=== PATIENT | female | born 1955 | race Caucasian/White ===

== ENCOUNTER → 2018-08-14 | Outpatient (CLI) | payer BC ==
[~2018-08-14] MED LIST: CHOL10003 PO; DIPH-419 PO; FLUO10CA7 PO
== END | disposition home or self-care (01) ==
LOC: STAR 08:59
PROVIDERS: ATTEND Orthopaedic Surgery
DX: Z01.818 Encounter for other preprocedural examination (principal); M19.011 Primary osteoarthritis, right shoulder
CPT/HCPCS: 93005

== ENCOUNTER 2018-08-22 11:43 | Day surgery (SDC) | payer BC ==
[2018-08-14 09:46] VITALS: BP 114/73
[~2018-08-22] VITALS: Ht 165.1 cm; Wt 86.3 kg
[~2018-08-22 11:43] MED LIST changes: +BUPIVACAINE/PF 0.5% ONE; +BUPIVACAINE/PF-EPI 0.5% 1:200K ONE; +EPINEPHRINE 1 MG/ML, 1ML ONE; +LIDOCAINE 1%-EPI 1:100K, 30ML ONE
[2018-08-22] MEDS ORDERED: LACTATED RINGERS 1,000 ML IV SCH (12:46)
[2018-08-22] MEDS ORDERED: FENTANYL PF 250 MCG/5ML ONE (12:57)
[2018-08-22] MEDS ORDERED: MIDAZOLAM 1 MG/ML, 2ML ONE (12:57)
[2018-08-22] MEDS ORDERED: MEPERIDINE/PF 50 MG/ML ONE (13:11)
[2018-08-22] MEDS ORDERED: FENTANYL PF 100 MCG/2ML IV PRN (14:30)
[2018-08-22] MEDS ORDERED: HYDROmorphone 2 MG/ML, 1ML IVPush PRN (14:30)
[2018-08-22] MEDS ORDERED: KETOROLAC 30 MG/1 ML IV PRN (14:30)
[2018-08-22] MEDS ORDERED: OXYcodone 5 MG/5 ML ORAL.SOL UDC PO PRN (14:30)
[2018-08-22] MEDS ORDERED: ACETAMINOPHEN 325 MG TABLET PO PRN (14:30)
[2018-08-22] MEDS ORDERED: PROMETHAZINE 25 MG/ML, 1ML IV PRN (14:30)
[2018-08-22] MEDS ORDERED: hydrALAzine 20 MG/ML, 1ML IV PRN (14:30)
[2018-08-22] MEDS ORDERED: LABETALOL 5MG/ML, 20ML IV PRN (14:30)
[2018-08-22] MEDS ORDERED: MEPERIDINE/PF 25MG/0.5ML IVPush PRN (14:30)
[2018-08-22] MEDS ORDERED: DIAZEPAM 5 MG/ML, 2ML IVPush PRN (14:30)
[2018-08-22] MEDS ORDERED: ALBUTEROL SULFATE 2.5 MG/3 ML NPPB PRN (14:30)
[2018-08-22] MEDS ORDERED: OXYcodone 5 MG/5 ML ORAL.SOL UDC ONE (15:02)
[2018-08-22] MEDS ORDERED: CEFAZOLIN 1,000 MG ONE (16:08)
[2018-08-22] MEDS ORDERED: SUCCINYLCHOLINE 20 MG/ML, 10ML ONE (16:08)
[2018-08-22] MEDS ORDERED: DEXAMETHASONE 4 MG/ML, 1ML ONE (16:08)
[2018-08-22] MEDS ORDERED: ONDANSETRON 2MG/ML, 2ML ONE (16:08)
[2018-08-22] MEDS ORDERED: PROPOFOL 10 MG/ML, 20ML ONE (16:08)
[2018-08-22] MEDS ORDERED: DIAZEPAM 5 MG TABLET ONE (17:02)
== END 2018-08-22 18:25 | disposition home or self-care (01) ==
LOC: OUT 11:43
PROVIDERS: ATTEND Orthopaedic Surgery
DX: S43.431A Superior glenoid labrum lesion of right shoulder, initial encounter (principal); M75.111 Incomplete rotator cuff tear or rupture of right shoulder, not specified as traumatic; M19.011 Primary osteoarthritis, right shoulder; M75.41 Impingement syndrome of right shoulder; M65.811 Other synovitis and tenosynovitis, right shoulder; F17.210 Nicotine dependence, cigarettes, uncomplicated; Z98.890 Other specified postprocedural states; Z72.89 Other problems related to lifestyle; X58.XXXA Exposure to other specified factors, initial encounter; Y93.89 Activity, other specified; Y92.89 Other specified places as the place of occurrence of the external cause; Y99.8 Other external cause status
CPT/HCPCS: 29823; 29824; 29826; 64415; J0330; J0690; J1100; J2250; J2405; J2704; J3010; J3490; J7120; J0171; J2175